=== PATIENT | male | born 1960 | race Hispanic/Latino ===

== ENCOUNTER 2017-09-28 16:57 | Emergency (ER) | payer BC ==
[~2017-09-28] VITALS: Ht 182.9 cm; Wt 105.7 kg
[~2017-09-28 16:57] MED LIST: ALOE VERA PO; CACTUS PO; METAXALONE800 MG PO; NAPROXEN500 MG PO; NASONEX17 GM; OSTEO BI-FLEX1 EAC2 PO; VITAMIN D31000 UNI1 PO; ZYRTEC10 M3 PO; [UNRECOGNIZED DRUG - OTHER] PO
[2017-09-28 19:01] VITALS: BP 107/69
== END 2017-09-28 18:57 | disposition home or self-care (01) ==
LOC: ER 16:57 → FSED 18:57
DX: M54.6 Pain in thoracic spine (principal); S23.3XXA Sprain of ligaments of thoracic spine, initial encounter; M62.830 Muscle spasm of back
CPT/HCPCS: 84484; 93005; 99283

== ENCOUNTER 2017-12-28 22:10 | Emergency (ER) | payer BC ==
[~2017-12-28] VITALS: Ht 182.9 cm; Wt 105.7 kg
[2017-12-28] MEDS ORDERED: CLINDAMYCIN PHOS 600 MG/ 4 ML VIAL IM ONE (22:45)
== END 2017-12-28 22:58 | disposition home or self-care (01) ==
LOC: FSED 22:10
DX: L03.113 Cellulitis of right upper limb (principal); E78.5 Hyperlipidemia, unspecified
CPT/HCPCS: 99283

== ENCOUNTER 2018-02-20 17:22 | Emergency (ER) | payer BC ==
[~2018-02-20] VITALS: Ht 182.9 cm; Wt 105.7 kg
[2018-02-20 18:08] VITALS: BP 135/74
== END 2018-02-20 18:03 | disposition home or self-care (01) ==
LOC: FSED 17:22
DX: R05 Cough (principal); J06.9 Acute upper respiratory infection, unspecified
CPT/HCPCS: 99283

== ENCOUNTER 2019-02-08 19:21 | Emergency (ER) | payer BC ==
[~2019-02-08] VITALS: Ht 182.9 cm; Wt 104.3 kg
--- OUTSIDE RECORDS SUMMARY | 2019-02-08 19:24 | XMS REPORT | Continuity of Care Document ---
Author Author [employer] Address Unknown Phone Unavailable Care Team Providers Care Stringed Instrument Assembler Name Role Phone [facility] Information Exchange Unavailable Unavailable Problems No Data Provided for This Section Medications Medication Details Route Status Patient Instructions Ordering Provider Order Date Source Mometasone Furoate (Nasonex) 17 Gm [place], Nasal Bedtime Active 04/03/2017 [facility] Sabila Con Nopal , 350 Mg Oral Daily Active 04/03/2017 [facility] Aloe Vera/[place] Daily Active [facility] Cetirizine Hcl (Zyrtec) 10 Mg Capsule Daily Active THERAPEUTICALLY SUBSTITUTED WITH LORATIDINE 10MG [facility] Cholecalciferol (Vitamin D3) (Vitamin D3) 1,000 Unit Tablet Daily Active [facility] Glucosamine/D3/Boswellia Nano (Osteo Bi-Flex Caplet) 1 Each Tablet Daily Active [facility] Metaxalone 800 Mg Tablet Daily Active [facility] Naproxen 500 Mg Tablet Twice A Day Active [facility] Allergies, Adverse Reactions, Alerts No Known Medication Allergies Immunizations No Data Provided for This Section Results No Data Provided for This Section Pathology Reports No Data Provided for This Section Diagnostic Reports No Data Provided for This Section Consultation Notes No Data Provided for This Section Discharge Summaries No Data Provided for This Section History and Physicals No Data Provided for This Section Vital Signs Vital Sign Value Date Comments Source Weight 221.9 08/20/2013 [id number] Height 72.5 08/20/2013 [id number] Temperature Oral (F) 98.4 F 08/20/2013 2..[id number] Heart Rate 66 08/20/2013 [id number] Diastolic (mm Hg) 73 08/20/2013 [id number] Systolic (mm Hg) 116 08/20/2013 [id number] Encounters Location Location Details Encounter Type Encounter Number Reason For Visit Attending Provider ADM Date DC Date Status Source [facility] Test results [id number] 08/26/2013 08/26/2013 [id number] [facility] Test results [id number] 08/26/2013 08/26/2013 [id number] [facility] Unknown [id number] 08/27/2013 08/27/2013 [id number] [facility] Unknown [id number] 08/27/2013 08/27/2013 [id number] Departed Emergency Room [id number] KING EVANS MD 09/28/2017 09/28/2017 [facility] Departed Emergency Room [id number] TIFFANY URIARTE MD 12/28/2017 12/28/2017 [facility] Departed Emergency Room [id number] CRICKET MONTEJO MD 02/20/2018 02/20/2018 [facility] Procedures No Data Provided for This Section Assessment and Plan No Data Provided for This Section Plan of Care Plan of Care Date Source Discharge Date 02/20/18 6:03pm Disposition HOME, SELF-CARE Condition at Discharge Stable Instructions/Education Provided Common Cold - Adult Prescriptions See Medication Section Referrals Neeraj Anaya MD Additional Instructions/Education Return to the closest emergency room if symptoms worsen. Take medication as prescribed. Fill your prescription immediately after leaving the ER. Tylenol/Ibuprofen as needed for headache, pain and fever. You may take a maximum of 600mg Ibuprofen every 6 hours as needed for pain and fever. You may also take a maximum of 500mg Tylenol every 4 hours as needed for pain and fever. It is okay to alternate the Ibuprofen and Tylenol. You may also use over the counter saline rinses and a humidifier to help with nasal congestion. Follow up with your doctor tomorrow. 02/20/2018 [facility] Social History Social History Date Source Smoking Status Start Date Stop Date Never Smoker 02/20/2018 [facility] Social History ElementQualifiersDate Reported Tobacco Use: . Are you a: never smoker August 20, 2013 Do you drink alcohol? . Status: Yes, Type: Beer, How Often? Socially, Quantity: 1 August 20, 2013 08/20/2013 [id number] Family History No Data Provided for This Section Advance Directives Order Name Results Value Date Source Advance Directives Advance Directives Directive Response Recorded Date/Time Does the patient have an advance directive? Yes 02/07/16 3:39pm If yes, is advance directive on file with [facility]? No 02/07/16 3:36pm If not on file with [facility] will patient provide a copy? Yes 04/03/17 12:39pm Do you have a Directive to Physician? 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 Yes 02/20/18 6:10pm Do you have an out of hospital Do Not Resuscitate Order? No 02/20/18 6:10pm Do you have any special needs we should be aware of? No 02/20/18 6:10pm Do you have a support person here with you today? Yes 02/20/18 6:10pm Did patient receive Notice of Privacy Practices? Yes 02/20/18 6:10pm Did patient receive patient rights and responsibilities? Yes 02/20/18 6:10pm 02/20/2018 [facility] Functional Status No Data Provided for This Section
[2019-02-08] MEDS ORDERED: KETOROLAC TROMETHAMINE 60 MG/2 ML VIAL IM ONE (20:00)
[2019-02-08] MEDS ORDERED: KETOROLAC TROMETHAMINE 30 MG/ML VIAL ONE (20:04)
[2019-02-08] MEDS ORDERED: NAPROSYN500 MG PO (20:07)
[2019-02-08] MEDS ORDERED: COLACE100 MG PO (20:07)
[2019-02-08] MEDS ORDERED: ULTRAM 50MG50 MG PO (20:07)
--- NOTE | 2019-02-08 21:41 | Diagnostic Imaging Report ---
Right hip radiograph 2 views and single pelvis radiograph HISTORY: Pain. COMPARISON: None available. FINDINGS: Bones: No acute displaced fracture. Osseous alignment is within normal limits. Joints: The joint spaces are well-maintained. Soft tissues: Enthesopathic changes about the pelvis. IMPRESSION: No acute radiographic abnormality. Enthesopathic changes about the pelvis. Signed by: Brandon Lockhart DO on 02/08/2019 9:37 PM
--- NOTE | 2019-02-08 21:44 | Diagnostic Imaging Report ---
Lumbar Spine Radiographs: 3 views HISTORY: Pain. COMPARISON: Abdominal CT 02/08/2019 DISCUSSION: Some of the osseous structures are partially obscured by stool and bowel gas. There are 6 nonrib bearing lumbar vertebral bodies. The alignment of the spine is within normal limits. No displaced fracture or compression deformity is identified. Disc Spaces: The disc spaces are well maintained. Multilevel disc osteophytes. Facets: Sclerotic changes in the mid to lower lumbar spine facets. IMPRESSION: No acute radiographic abnormality. Mild degenerative changes in the lumbar spine. Signed by: Brandon Lockhart DO on 02/08/2019 9:40 PM
--- NOTE | 2019-02-08 22:02 | Diagnostic Imaging Report ---
EXAM: CT Abdomen and Pelvis WITHOUT contrast INDICATION: Lower back pain, right hip pain COMPARISON: None. TECHNIQUE: Abdomen and pelvis were scanned utilizing a multidetector helical scanner from the lung base to the pubic symphysis without administration of IV contrast. Absence of intravenous contrast decreases sensitivity for detection of focal lesions and vascular pathology. Coronal and sagittal reformations were obtained. Routine protocol was performed. IV CONTRAST: None ORAL CONTRAST: None COMPLICATIONS: None RADIATION DOSE: Total DLP: 828 mGy*cm Estimated effective dose: (DLP x 0.015 x size factor) mSv CTDIvol has been reviewed. It is below the limits set by the Radiation Protocol Committee (RPC). Dose modulation, iterative reconstruction, and/or weight based adjustment of the mA/kV was utilized to reduce the radiation dose to as low as reasonably achievable. FINDINGS: LINES and TUBES: None. LOWER THORAX: Mild right atrial enlargement. HEPATOBILIARY: No focal hepatic lesions. No biliary ductal dilation. GALLBLADDER: No radio-opaque stones or sludge. No wall thickening. SPLEEN: No splenomegaly. PANCREAS: No focal masses or ductal dilatation. ADRENALS: No adrenal nodules KIDNEYS/URETERS: No hydronephrosis. A 1.6 cm hypodensity in the renal right inferior measures fluid density and is likely a cyst or calyx. No solid masses. Punctate calculus in a left renal inferior pole minor calyx. GI TRACT: No abnormal distention, wall thickening, or evidence of bowel obstruction. Appendix is normal. PELVIC ORGANS/BLADDER: Prostatic calcifications. Bladder is underdistended. LYMPH NODES: No lymphadenopathy. VESSELS: Unremarkable. PERITONEUM / RETROPERITONEUM: No free air or fluid. BONES: No acute displaced fractures. Degenerative changes in the spine and pelvis. There are 6 nonrib bearing lumbar vertebral bodies, L6 vertebral body has bilateral pseudoarthrosis with the sacral aorta. SOFT TISSUES: A fat containing left inguinal hernia. Evidence of a left gluteal subcutaneous injection. IMPRESSION: 1. No acute abnormalities in the abdomen or pelvis. 2. Mild right atrial enlargement. 3. Degenerative changes in the spine and pelvis, with lumbosacral pseudoarthrosis.. Signed by: Brandon Lockhart DO on 02/08/2019 9:59 PM
[2019-02-08 22:15] VITALS: BP 135/74
== END 2019-02-08 22:30 | disposition home or self-care (01) ==
LOC: FSED 19:21
DX: M54.5 Low back pain (principal); M25.551 Pain in right hip; R50.9 Fever, unspecified
CPT/HCPCS: 72100; 73502; 74176; 81003; 96372; 99284; J1885

== ENCOUNTER 2019-03-06 15:39 | Observation (INO) | payer BC ==
[~2019-03-06] VITALS: Ht 182.9 cm; Wt 101.2 kg
[~2019-03-06 15:39] MED LIST changes: +COLACE100 MG PO; +NAPROSYN500 MG PO; +ULTRAM 50MG50 MG PO
--- OUTSIDE RECORDS SUMMARY | 2019-03-06 15:43 | XMS REPORT ---
Author Author [facility] Address Unknown Phone Unavailable Care Team Providers Care Physician Practice Administrator Name Role Phone Juan SZYMANSKI Unavailable Unavailable Problems This patient has no known problems. Allergies, Adverse Reactions, Alerts This patient has no known allergies or adverse reactions. Medications This patient has no known medications. Results Test Description Test Time Test Comments Text Results Atomic Results Result Comments CT ABD/PEL WO CONTRAST-HOPD 2019-02-08 21:49:00 [place] [address] Patient Name: REI WAN MR #: [id number] : 1960 Age/Sex: 59/M Req #: [id number] Adm Physician: Ordered by: JAN SZYMANSKI MD Report #: [id number] Location: [facility] Room/Bed: Procedure: [id number] HOPD/CT ABD/PEL WO CONTRAST-HOPD Exam Date: 02/08/19 Exam Time: 2038 REPORT STATUS: Signed EXAM: CT Abdomen and Pelvis WITHOUT contrast INDICATION: Lower back pain, right hip pain COMPARISON: None. TECHNIQUE: Abdomen and pelvis were scanned utilizing a multidetector helical scanner from the lung base to the pubic symphysis without administration of IV contrast. Absence of intravenous contrast decreases sensitivity for detection of focal lesions and vascular pathology. Coronal and sagittal reformations were obtained. Routine protocol was performed. IV CONTRAST: None ORAL CONTRAST: None COMPLICATIONS: None RADIATION DOSE: Total DLP: 828 mGy*cm Estimated effective dose: (DLP x 0.015 x size factor) mSv CTDIvol has been reviewed. It is below the limits set by the Radiation Protocol Committee (RPC). Dose modulation, iterative reconstruction, and/or weight based adjustment of the mA/kV was utilized to reduce the radiation dose to as low as reasonably achievable. FINDINGS: LINES and TUBES: None. LOWER THORAX: Mild right atrial enlargement. HEPATOBILIARY: No focal hepatic lesions. No biliary ductal dilation. GALLBLADDER: No radio-opaque stones or sludge. No wall thickening. SPLEEN: No splenomegaly. PANCREAS: No focal masses or ductal dilatation. ADRENALS: No adrenal nodules KIDNEYS/URETERS: No hydronephrosis. A 1.6 cm hypodensity in the renal right inferior measures fluid density and is likely a cyst or calyx. No solid masses. Punctate calculus in a left renal inferior pole minor calyx. GI TRACT: No abnormal distention, wall thickening, or evidence of bowel obstruction. Appendix is normal. PELVIC ORGANS/BLADDER: Prostatic calcifications. Bladder is underdistended. LYMPH NODES: No lymphadenopathy. VESSELS: Unremarkable. PERITONEUM / RETROPERITONEUM: No free air or fluid. BONES: No acute displaced fractures. Degenerative changes in the spine and pelvis. There are 6 nonrib bearing lumbar vertebral bodies, L6 vertebral body has bilateral pseudoarthrosis with the sacral aorta. SOFT TISSUES: A fat containing left inguinal hernia. Evidence of a left gluteal subcutaneous injection. IMPRESSION: 1. No acute abnormalities in the abdomen or pelvis. 2. Mild right atrial enlargement. 3. Degenerative changes in the spine and pelvis, with lumbosacral pseudoarthrosis.. Signed by: Brandon Lockhart DO on 02/08/2019 9:59 PM Dictated By: BRANDON LOCKHART DO 56 Transcribed By: TAISHA on 02/08/192158 COPY TO: JAN SZYMANSKI MD SPINE 2-3 [facility] 2019-02-08 21:37:00 [place] [address] Patient Name: REI WAN MR #: [id number] : 1960 Age/Sex: 59/M Req #: [id number] Adm Physician: Ordered by: JAN SZYMANSKI MD Report #: [id number] Location: [facility] Room/Bed: Procedure: [id number] HOPD/L SPINE 2-3 VEWS - HOPD Exam Date: 02/08/19 Exam Time: 2009 REPORT STATUS: Signed Lumbar Spine Radiographs: 3 views HISTORY: Pain. COMPARISON: Abdominal CT 02/08/2019 DISCUSSION: Some of the osseous structures are partially obscured by stool and bowel gas. There are 6 nonrib bearing lumbar vertebral bodies. The alignment of the spine is within normal limits. No displaced fracture or compression deformity is identified. Disc Spaces: The disc spaces are well maintained. Multilevel disc osteophytes. Facets: Sclerotic changes in the mid to lower lumbar spine facets. IMPRESSION: No acute radiographic abnormality. Mild degenerative changes in the lumbar spine. Signed by: Brandon Lockhart DO on 02/08/2019 9:40 PM Dictated By: BRANDON LOCKHART DO 37 Transcribed By: TAISHA on 02/08/192139 COPY TO: JAN SZYMANSKI MD HIP 2 VW WITH PELVIS RT - HOPD 2019-02-08 21:35:00 [place] [address] Patient Name: REI WAN MR #: [id number] : 1960 Age/Sex: 59/M Req #: [id number] Adm Physician: Ordered by: JAN SZYMANSKI MD Report #: [id number] Location: [facility] Room/Bed: Procedure: [id number] HOPD/HIP 2 VW WITH PELVIS RT - HOPD Exam Date: 02/08/19 Exam Time: 2009 REPORT STATUS: Signed Right hip radiograph 2 views and single pelvis radiograph HISTORY: Pain. COMPARISON: None available. FINDINGS: Bones: No acute displaced fracture. Osseous alignment is within normal limits. Joints: The joint spaces are well-maintained. Soft tissues: Enthesopathic changes about the pelvis. IMPRESSION: No acute radiographic abnormality. Enthesopathic changes about the pelvis. Signed by: Brandon Lockhart DO on 02/08/2019 9:37 PM Dictated By: BRANDON LOCKHART DO 34 Transcribed By: TAISHA on 02/08/192136 COPY TO: JAN SZYMANSKI MD
--- NOTE | 2019-03-06 18:24 | Diagnostic Imaging Report ---
EXAM: CT Chest WITH contrast INDICATION: Upper back pain. Chest pain. COMPARISON: CT scan 02/08/2019 TECHNIQUE: Chest was scanned utilizing a multidetector helical scanner from the lung apex through the level of the adrenal glands after administration of IV contrast. Coronal and sagittal reformations were obtained. IV CONTRAST: 100 mL of Isovue-370 ORAL CONTRAST: None COMPLICATIONS: None RADIATION DOSE: Total DLP: 828 mGy*cm Estimated effective dose: (DLP x 0.015 x size factor) mSv CTDIvol has been reviewed. It is below the limits set by the Radiation Protocol Committee (RPC). Dose modulation, iterative reconstruction, and/or weight based adjustment of the mA/kV was utilized to reduce the radiation dose to as low as reasonably achievable. FINDINGS: LINES/ TUBES: None. LUNGS AND AIRWAYS: Numerous scattered ill-defined groundglass nodular densities in the lungs could be due to multifocal pneumonia in the appropriate clinical context. This is best seen on axial image 45 and axial image 63. Airways are normal. PLEURA: The pleural spaces are clear. HEART AND MEDIASTINUM: The thyroid gland is normal. No mediastinal, hilar or axillary lymphadenopathy. Left atrial enlargement. There is no pericardial effusion. The thoracic aorta and pulmonary arteries are unremarkable. UPPER ABDOMEN: Unremarkable. BONES: The visualized bony thorax is within normal limits. SOFT TISSUES: Unremarkable. IMPRESSION: Numerous scattered ill-defined groundglass nodular densities in the lungs could be due to multifocal pneumonia in the appropriate clinical context. Follow-up CT scan is recommended to document clearing. Signed by: Dr. Italo Camacho M.D. on 03/06/2019 6:20 PM
[2019-03-06] MEDS ORDERED: ASPIRIN 81 MG CHEW TAB PO ONE (19:00)
[2019-03-06] MEDS ORDERED: ASPIRIN 325 MG TAB PO ONE (19:00)
[2019-03-06] MEDS ORDERED: ONDANSETRON HCL INJ 2MG/ML 2ML 2 MG/ML VIAL IV PRN (19:00)
[2019-03-06] MEDS ORDERED: ASPIRIN 325 MG TAB ONE (19:11)
[2019-03-06 21:05] VITALS: BP 133/74
[2019-03-06 22:00] VITALS: BP 133/74
[2019-03-06] MEDS ORDERED: NAPROXEN125 MG/5 M (22:59)
[2019-03-06] MEDS ORDERED: ACETAMINOPHEN 325 MG TAB PO PRN (23:30)
[2019-03-06] MEDS ORDERED: SODIUM CHLORIDE 0.9% 250ML 250 ML ONE (23:54)
[2019-03-07] VITALS (8 sets, daily range): BP systolic 123–135; BP diastolic 66–82
[2019-03-07] MEDS: LEVOFLOXACIN 750MG/D5W 150ML 150 ML IV SCH ×2 (00:21→23:35)
[2019-03-07 00:55] LABS: CREATINE KINASE MB 0.8 ng/mL (0-5.0)
--- NOTE | 2019-03-07 02:58 | History and Physical ---
CHIEF COMPLAINT: Atypical chest pain since 5 days. HISTORY OF PRESENT ILLNESS: This is a 59-year-old male with no significant past medical history, was in his usual state until a couple days ago. He started developing some atypical chest pain and upper back pain. Pain is not relieved. Pain is more today. He is still having some substernal chest pain and upper back pain. Pain not radiating into upper extremity. No sweating. No shortness of breath. No nausea. No vomiting. No cough. No fever. No headache. No dizziness. No focal weakness. No seizures. No hematochezia. No melena. ALLERGIES: NO KNOWN DRUG ALLERGIES. PAST MEDICAL HISTORY: None. PAST SURGICAL HISTORY: History of bilateral knee meniscus repair. HABITS: Denies smoking, but occasional alcohol use. No drug use. FAMILY HISTORY: Positive for hypertension. Mother and father both had hypertension. MEDICATION: None. REVIEW OF SYSTEMS: GENERAL: Denies fatigue and weakness. HEENT: No diplopia or blurred vision. CARDIOPULMONARY: Has some chest pain, but no shortness of breath. No cough. ALIMENTARY: No nausea or vomiting. No diarrhea. GENITOURINARY: No dysuria. No hematuria. MUSCULOSKELETAL: No joint pain. CENTRAL NERVOUS SYSTEM: No focal weakness. PHYSICAL EXAMINATION: GENERAL: This is a 59-year-old male, who is alert and oriented x3, in no gross distress. VITAL SIGNS: Temperature is 98.2, pulse 80, respiration 18, blood pressure 140/80. HEENT: Head is atraumatic and normocephalic. Pupils bilaterally equally reactive to light. Extraocular muscles intact. NECK: Supple. No JVD. No carotid bruit. LUNGS: Clear to auscultation and percussion bilaterally. No added sounds. HEART: S1 and S2. Regular rate and rhythm. No S3, S4, or murmur. ABDOMEN: Soft, nontender. No guarding or rigidity. EXTREMITIES: No edema. Peripheral pluses +1. 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 IMAGING: EKG normal sinus rhythm at 64 per minute, normal. CT of the chest shows numerous scattered ill-defined ground-glass nodular density in the lung, could be multifocal pneumonia in the LABORATORY DATA: White count 8.3, hemoglobin 13.6, hematocrit 40.7, platelet is 230. Sodium 139, potassium 3.5, BUN and creatinine are normal. LFTs normal. ASSESSMENT: 1. Atypical chest pain, rule out angina, rule out coronary artery disease. CBC, white count normal. Cardiac enzyme is negative. 2. Rule out pneumonia. PLAN: Admit the patient to medical floor with telemetry. Cardiac enzymes q.6h x2. Cardiac consult with Dr. Reno. Lab tomorrow. CBC, CMP, lipid panel in the morning. Levaquin 750 IV daily. Pulmonary consult with Dr. Torres/Adam. Discussed the patient's diagnosis, condition, and prognosis. MD DARIO Quiros/EMIR /[id number]
[2019-03-07 05:59] LABS: BASOPHILS % 0.5 % (0.0-1.0); EOSINOPHILS # (AUTO) 0.1 (0.0-0.4); EOSINOPHILS % 1.6 % (0.0-6.0); HEMATOCRIT 41.9 % (38.2-49.6); LYMPHOCYTES # (AUTO) 1.4 (1.0-3.2); LYMPHOCYTES % 24.5 % (18.0-39.1); MEAN CORPUSCULAR HEMOGLOBIN 29.7 pg (28-32); MEAN CORPUSCULAR HGB CONC 33.4 g/dL (31-35); MEAN CORPUSCULAR VOLUME 88.8 fL (81-99); MONOCYTES # (AUTO) 0.7 (0.2-0.8); MONOCYTES % 13.2 % (4.4-11.3); NEUTROPHILS # (AUTO) 3.3 (2.1-6.9); NEUTROPHILS % 59.8 % (38.7-80.0); PLATELET COUNT 236 x10e3/uL (140-360); RED BLOOD COUNT 4.72 x10e6/uL (4.3-5.7); RED CELL DISTRIBUTION WIDTH 13.2 % (11.7-14.4)
[2019-03-07 06:13] LABS: ALANINE AMINOTRANSFERASE 15 IU/L (0-55); ALBUMIN 3.1 g/dL (3.5-5.0); ALBUMIN/GLOBULIN RATIO 0.9 (0.8-2.0); ALKALINE PHOSPHATASE 68 IU/L (40-150); ANION GAP 10.8 mmol/L (8-16); BLOOD UREA NITROGEN 12 mg/dL (7-26); BUN/CREATININE RATIO 13 (6-25); CALCIUM 8.7 mg/dL (8.4-10.2); CARBON DIOXIDE 30 mmol/L (22-29); CHLORIDE 104 mmol/L (98-107); CREATININE, SERUM 0.89 mg/dL (0.72-1.25); EST GLOMERULAR FILTRATION RATE > 60 ML/MIN (60-); GLUCOSE 100 mg/dL (74-118); POTASSIUM 3.8 mmol/L (3.5-5.1); SODIUM 141 mmol/L (136-145)
[2019-03-07 06:36] LABS: CHOL/HDL RATIO 4.2 (3.9-4.7)
[2019-03-07 06:59] LABS: FREE T4 (FREE THYROXINE) 0.76 ng/dL (0.8-1.8); THYROID STIMULATING HORMONE 2.047 uIU/mL (0.350-4.940)
[2019-03-07 07:47] LABS: CREATINE KINASE MB 1.5 ng/mL (0-5.0)
[2019-03-07] MEDS: PANTOPRAZOLE SOD 40 MG TABEC PO SCH (08:10)
[2019-03-07] MEDS: ASPIRIN 325 MG TAB EC PO SCH (08:26)
[2019-03-07] MEDS ORDERED: ASPIRIN 325 MG TAB EC PO SCH (09:00)
--- NOTE | 2019-03-07 11:19 | Consultation ---
DATE OF CONSULTATION: Pulmonary Consultation HISTORY OF PRESENT ILLNESS: Patient of Dr. Stormy Allan. 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 Usually healthy. Nonsmoker. No alcohol use. MEDICATIONS: Takes hwmw-kqf-iesinjr medications, Naprosyn, B12, aloe vera, according to record thyroid supplements. ALLERGIES: HE HAS NO KNOWN ALLERGIES. PAST SURGICAL HISTORY: He has had arthroscopic knee surgery and a boil removed from his back. SOCIAL HISTORY: Rarely drinks. Does not smoke. Born in [place], usually active. FAMILY HISTORY: Positive for hypertension, blood clots, carcinoma of the breast, palpitations, irregular heartbeat. PHYSICAL EXAMINATION: GENERAL: Well-developed white male, stated age. VITAL SIGNS: Temperature 97.9, pulse 60 and regular, respirations 20, and blood pressure 129/60. HEAD: Normocephalic, atraumatic. EYES: Extraocular movements intact. LUNGS: Bilateral rales. HEART: Regular rhythm. ABDOMEN: Nontender. EXTREMITIES: Nonedematous. IMAGING: CT was reviewed, bilateral lower lobe patchy infiltrates. IMPRESSION: Atypical pneumonia. check serology. Continue antibiotics, prophylactic Lovenox. Cardiology opinion is pending. Thank you for this kind referral. MD MK Underwood/EMIR /[id number] CHANO
[2019-03-07 13:35] LABS: CREATINE KINASE MB 0.8 ng/mL (0-5.0)
[2019-03-07] MEDS ORDERED: ENOXAPARIN SOD INJ 40 MG/0.4 ML SYR SC SCH (17:00)
[2019-03-08] VITALS: BP 123/73
--- NOTE | 2019-03-08 00:03 | Consultation ---
DATE OF CONSULTATION: 03/07/2019 Cardiology Consultation REQUESTING PHYSICIAN: Benji Allan MD REASON FOR CONSULTATION: Chest pain. HISTORY OF PRESENT ILLNESS: This is a 59-year-old male with history of hyperlipidemia, who presents with complaints of chest pain and shortness of breath. He reports he has been having right-sided chest pain and shortness of breath for the last 4-5 days. He describes this pain as stinging, 3 to 4/10 in severity with radiation to the side. The pain lasts minutes at a time, but has been recurrent during this time period. He denies any nausea or diaphoresis. Yesterday, he noted pressure in the back as well. Given his symptoms, he presented to the ER for further evaluation. He denied any edema, orthopnea, PND, or palpitations. REVIEW OF SYSTEMS: Negative except as per HPI. PAST MEDICAL HISTORY: Hyperlipidemia. PAST SURGICAL HISTORY: 1. Knee surgery. 2. Likely lipoma resection based on description. ALLERGIES: PLEASE SEE EMR. MEDICATIONS: Please see medication list. SOCIAL HISTORY: Remote history of tobacco use. No illicit drugs. Drinks alcohol occasionally. FAMILY HISTORY: Pertinent for father with heart disease, although details are not known. PHYSICAL EXAMINATION: VITAL SIGNS: Temperature 96.9 degrees, pulse 86, respiratory rate 20, blood pressure 129/68, and oxygen saturation 96% on room air. GENERAL: Well-developed, well-nourished man. HEENT: Normocephalic, atraumatic. Pupils equal. No scleral icterus. NECK: Supple. No thyromegaly or cervical lymphadenopathy. No carotid bruits. LUNGS: Clear to auscultation bilaterally. No wheeze or crackles. CARDIOVASCULAR: Normal rate. Regular rhythm. No murmur. Normal S1 and S2. ABDOMEN: Soft and nontender. EXTREMITIES: No edema. NEUROLOGIC: Nonfocal exam. LABORATORY DATA: WBC 5.54, hemoglobin 14, hematocrit 41.9, and platelets 236. Sodium 141, potassium 3.8, chloride 104, CO2 of 30, BUN 12, creatinine 0.89, and troponin 0.014. CT of the chest, numerous scattered ill-defined ground-glass nodular densities in lungs could be due to multifocal pneumonia in the appropriate clinical context. Followup CT scan is recommended to document clearing. Chest x-ray, normal sinus rhythm, normal ECG. IMPRESSION: 1. Atypical chest pain. 2. Pneumonia. 3. Hyperlipidemia. RECOMMENDATIONS: The patient has ruled out for myocardial infarction with serial cardiac biomarkers. Obtain echocardiogram to evaluate for structural heart disease. Monitor the patient closely on telemetry. Fasting lipid panel was reviewed. Given CT findings, suspect the patient's symptoms are more likely pulmonary etiology. Recommend ischemic evaluation with nuclear stress test as an outpatient. Thank you for this consult. We will continue to follow. Jennie Garcia MD ABS/MODL /[id number]
[2019-03-08 04:00] VITALS: BP 122/71
[2019-03-08] MEDS ORDERED: LEVOTHYROXINE SODIUM 25 MCG TABLET PO SCH (06:00)
[2019-03-08 08:00] VITALS: BP 120/71
[2019-03-08] MEDS: PANTOPRAZOLE SOD 40 MG TABEC PO SCH (09:20)
[2019-03-08] MEDS: ASPIRIN 325 MG TAB EC PO SCH (09:20)
[2019-03-08 09:31] VITALS: BP 122/71
[2019-03-08 12:55] VITALS: BP 126/78
--- NOTE | 2019-03-08 12:56 | Progress Note ---
DATE: Cardiology Progress Note SUBJECTIVE: The patient reports right-sided chest pain that has been ongoing on and off. Denies any palpitations, fever, or chills. Does endorse some shortness of breath. OBJECTIVE: VITAL SIGNS: Temperature 97.1, pulse 66, respiratory rate 18, blood pressure 122/71, and oxygen saturation 94% on room air. GENERAL: Alert and oriented x3. Resting comfortably in bed. Does not appear to be in any acute distress. NECK: Supple. No JVD noted. LUNGS: Clear to auscultation throughout. No wheezing. No rhonchi or crackles. CARDIOVASCULAR: Normal rate and rhythm. No murmurs. No gallops. Normal S1 and S2. ABDOMEN: Soft and nontender. EXTREMITIES: Lower extremity, no edema. CARDIOVASCULAR MEDICATIONS: Aspirin 325 p.o. daily and Lovenox 40 mg subcutaneous daily. LABORATORY DATA: No new labs today. TELEMETRY: Normal sinus rhythm. IMPRESSION: 1. Atypical chest pain. 2. Pneumonia. 3. Hyperlipidemia. RECOMMENDATION: Continue antimicrobial therapy per primary team. Acute coronary syndrome has been ruled out with serial cardiac markers. We have ordered an echocardiogram. This is awaiting to be completed. Continue to monitor this patient very closely. However, the patient will need ischemic workup. This may be done as outpatient. He will follow up with Dr. Garcia upon discharge. Dictated by Radha Oquendo NP MD ARIC Renae/EMIR /[id number]
[2019-03-08] MEDS ORDERED: LEVAQUIN500 MG PO (14:36)
[2019-03-08] MEDS ORDERED: PANTOPRAZOLE SO40 MG PO (14:37)
[2019-03-08] MEDS ORDERED: SYNTHROID50 MCG PO (14:37)
== END 2019-03-08 15:39 | disposition home or self-care (01) ==
LOC: FSED 15:39 → ERHOLD 18:53 → UNDOADMOB 19:16 → MED/SURG 21:06
PROVIDERS: ADMIT Internal Medicine; ATTEND Internal Medicine
DX: J18.9 Pneumonia, unspecified organism (principal); R07.89 Other chest pain; E78.5 Hyperlipidemia, unspecified; E03.9 Hypothyroidism, unspecified; K21.9 Gastro-esophageal reflux disease without esophagitis
CPT/HCPCS: 36415; 71260; 80053 ×2; 80061; 82550; 82553 ×2; 83036; 84439; 84443; 84484 ×2; 85025 ×2; 86738 ×2; 87040; 87070; 87205; 93005; 93306; 99284; G0378 ×3; J1650; J2405; J7050; S0164 ×2; 87449

== ENCOUNTER → 2019-03-31 | Outpatient (CLI) | payer BC ==
[~2019-03-31] MED LIST changes: +LEVAQUIN500 MG PO; +NAPROXEN125 MG/5 M; +PANTOPRAZOLE SO40 MG PO; +SYNTHROID50 MCG PO
--- NOTE | 2019-04-01 08:59 | Diagnostic Imaging Report ---
EXAM: CT Chest WITHOUT intravenous contrast 03/31/2019 4:22 PM INDICATION: Cough COMPARISON: Chest CT of 03/06/2019 TECHNIQUE: Chest was scanned utilizing a multidetector helical scanner from the lung apex through the level of the adrenal glands without administration of IV contrast. Coronal and sagittal reformations were obtained. Routine protocol was performed. IV CONTRAST: None RADIATION DOSE: Total DLP: 555.9 mGy*cm. Dose modulation, iterative reconstruction, and/or weight based adjustment of the mA/kV was utilized to reduce the radiation dose to as low as reasonably achievable. COMPLICATIONS: None FINDINGS: LINES/ TUBES: None. LUNGS AND AIRWAYS: The central airways are patent. No focal consolidation or pulmonary edema. Minimal bibasilar dependent subsegmental atelectasis. There has been interval resolution of the consolidative opacities at the posterior right upper lobe and dependent left lower lobe. No suspicious pulmonary nodules. PLEURA: No pleural effusion or pneumothorax. HEART AND MEDIASTINUM: The thyroid gland is normal. No supraclavicular, mediastinal, or hilar lymphadenopathy. No axillary, subpectoral, or internal mammary lymphadenopathy. The heart is not enlarged. No pericardial effusion. The main pulmonary artery is not enlarged. UPPER ABDOMEN: The visualized liver, gallbladder, spleen, pancreas, adrenals, and upper most kidneys. BONES: No acute osseous injury. No suspicious lytic or blastic lesions. SOFT TISSUES: Unremarkable. IMPRESSION: Interval resolution of consolidative opacities at the posterior right upper lobe and dependent left lower lobe. No focal pneumonia or pulmonary edema. No suspicious pulmonary nodules. Signed by: Augie Rose MD on 04/01/2019 8:55 AM
== END ==
LOC: CT 16:04
PROVIDERS: ATTEND Internal Medicine
DX: R05 Cough (principal)
CPT/HCPCS: 71250

== ENCOUNTER 2019-11-15 19:53 | Emergency (ER) | payer BC ==
[~2019-11-15] VITALS: Ht 182.9 cm; Wt 102.1 kg
[2019-11-15] MEDS ORDERED: TESSALON PERLE100 MG PO (20:17)
[2019-11-15] MEDS ORDERED: AZITHROMYCIN250 MG PO (20:17)
[2019-11-15] MEDS ORDERED: VENTOLIN HFA18 GM PO (20:17)
--- NOTE | 2019-11-15 20:21 | Emergency Department Note ---
History of Present Illnes History of Present Illness Chief Complaint: COVID PUI History of Present Illness This is a 59 year old male . Historian: Patient Arrival Mode: Car Insurance Service Representative Required: No Onset (how long ago): day(s) (2) Radiation: Reports non-radiation Severity: mild Onset quality: gradual Duration (how long): day(s) (2) Timing of current episode: constant Progression: unchanged Chronicity: new Context: Denies recent illness, Denies recent surgery, Denies recent immobilization, Denies recent travel, Denies trauma/injury, Denies new medic ations, Denies hx of DVT/PE, Denies non-compliance w/ medications, Denies other Relieving factors: none Exacerbating factors: none Associated symptoms: Reports cough, Reports fever/chills; Denies denies other symptoms, Denies loss of appetite, Denies shortness of breath, Denies weakness Treatments prior to arrival: none Past Medical/Family History Physician Review I have reviewed the patient's past medical and family history. Any updates have been documented here. Past Medical History Recent Fever: Yes Clinical Suspicion of Infectio: Yes New/Unexplained Change in Ment: No Past Medical History: Hyperlipedemia Past Surgical History: Back Surgery Other Surgery: bilateral knee surgery left Feb 2017 right knee for torn meniscus Social History Smoking Cessation: Never Smoker Alcohol Use: Occasional Any Illegal Drug Use: No TB Exposure/Symptoms: No Physically hurt or threatened: No Other Last Tetanus: UTD Any Pre-Existing Lines (PICC,: No Is patient up to date on immun: No Last Flu: DOES NOT TAKE Last Pneumovax: UNK Review of Systems Review of Systems Constitutional: Reports fever EENTM: Reports no symptoms Respiratory: Reports cough; Denies chest congestion, Denies excessive phlegm production Review of other systems: All other systems negative Physical Exam Related Data Allergies: Coded Allergies: No Known Allergies (Unverified , 09/28/17) Vital signs reviewed: Yes Physical Exam CONSTITUTIONAL Constitutional: Present well-developed HENT HENT: Present normocephalic EYES Eyes: Reports conjunctivae normal NECK Neck: Present supple PULMONARY Pulmonary: Present effort normal, Present breath sounds normal; Absent respiratory distress CARDIOVASCULAR Cardiovascular: Present regular rhythm GASTROINTESTINAL Abdominal: Present soft GENITOURINARY SKIN Skin: Present warm MUSCULOSKELETAL Musculoskeletal: Absent edema NEUROLOGICAL Neurological: Present alert, Present oriented x 3 PSYCHOLOGICAL Psychological: Present mood/affect normal Results Imaging Imaging results reviewed: Yes Impressions EXAMINATION: CXR 1 VEW - HOPD INDICATION: Fever, Cough COMPARISON: Chest CT 03/06/2019 FINDINGS: TUBES and LINES: None. LUNGS: Normal lung volumes. Lungs are clear. No consolidations. PLEURA: No pleural effusion or pneumothorax. HEART AND MEDIASTINUM: The cardiomediastinal silhouette is unremarkable. BONES AND SOFT TISSUES: No acute osseous lesion. Soft tissues are unremarkable. UPPER ABDOMEN: No free air under the diaphragm. IMPRESSION: No acute thoracic radiographic abnormality. Signed by: Brandon Lockhart DO on 11/15/2019 10:05 PM Assessment & Plan Medical Decision Making MDM covid, viral syndrome, bronchitis, PNA Assessment & Plan Final Impression: (1) Bronchitis (2) Fever Depart Disposition: HOME, SELF-long term Meds Active Scripts Albuterol Sulfate (VENTOLIN HFA) 18 Gm Hfa.aer.ad, 2 PUMP PO QID PRN for cough for 7 Days, #1 Prov:JAN SZYMANSKI MD 11/15/19 Azithromycin (Z-RAYMOND) 250 Mg Tablet, 500 MG PO 5 DAY PACK DIRECT, #1 Prov:JAN SZYMANSKI MD 11/15/19 Benzonatate (TESSALON PERLE) 100 Mg Capsule, 100 MG PO TID PRN for COUGH for 5 Days, #15 Prov:JAN SZYMANSKI MD 11/15/19 Docusate Sodium (COLACE) 100 Mg Cap, 100 MG PO BID PRN for CONSTIPATION for 7 Da ys, #14 CAP Prov:JAN SZYMANSKI MD 02/08/19 Reported Medications Pantoprazole Sodium* (PROTONIX) 40 Mg Tablet.dr, 40 MG PO QAM, TAB 03/08/19 Levothyroxine Sodium (SYNTHROID) 50 Mcg Tab, 25 MCG PO 0630, #30 TAB 03/08/19 Levofloxacin (LEVAQUIN) 500 Mg Tablet, 500 MG PO DAILY for 10 Days, TAB 03/08/19 Naproxen (NAPROXEN) 125 Mg/5 Ml Oral.susp, for pain 03/06/19 [Aloe Vera/[place]] No Conflict Check, PO DAILY 04/03/17 Cetirizine Hcl (ZYRTEC) 10 Mg Capsule, 10 MG PO DAILY THERAPEUTICALLY SUBSTITUTED WITH LORATIDINE 10MG 04/03/17 Glucosamine/D3/Boswellia Nano (OSTEO BI-FLEX CAPLET) 1 Each Tablet, PO DAILY 02/15/16 Cholecalciferol (Vitamin D3) (VITAMIN D3) 1,000 Unit Tablet, 1000 UNITS PO DAILY 02/15/16 JAN SZYMANSKI MD Nov 15, 2019 20:21
[2019-11-15] MEDS ORDERED: ACETAMINOPHEN 325 MG TAB PO ONE (20:45)
[2019-11-15] MEDS ORDERED: ACETAMINOPHEN 325 MG TAB ONE (20:49)
--- NOTE | 2019-11-15 22:09 | Diagnostic Imaging Report ---
EXAMINATION: CXR 1 [facility] INDICATION: Fever, Cough COMPARISON: Chest CT 03/06/2019 FINDINGS: TUBES and LINES: None. LUNGS: Normal lung volumes. Lungs are clear. No consolidations. PLEURA: No pleural effusion or pneumothorax. HEART AND MEDIASTINUM: The cardiomediastinal silhouette is unremarkable. BONES AND SOFT TISSUES: No acute osseous lesion. Soft tissues are unremarkable. UPPER ABDOMEN: No free air under the diaphragm. IMPRESSION: No acute thoracic radiographic abnormality. Signed by: Brandon Lockhart DO on 11/15/2019 10:05 PM
[2019-11-15 22:32] VITALS: BP 121/69
== END 2019-11-15 22:32 | disposition home or self-care (01) ==
LOC: FSED 19:53
DX: R50.9 Fever, unspecified (principal); R05 Cough; J40 Bronchitis, not specified as acute or chronic; U07.1 COVID-19; E78.5 Hyperlipidemia, unspecified
CPT/HCPCS: 71045; 71046; 87635; 99283

== ENCOUNTER → 2020-06-09 | Outpatient (CLI) | payer BC ==
[~2020-06-09] MED LIST changes: +AZITHROMYCIN250 MG PO; +TESSALON PERLE100 MG PO; +VENTOLIN HFA18 GM PO
== END ==
LOC: RAD 10:56
PROVIDERS: ATTEND Internal Medicine
DX: R06.02 Shortness of breath (principal)
CPT/HCPCS: 71046

== ENCOUNTER 2020-07-09 16:46 | Emergency (ER) | payer BC ==
[~2020-07-09] VITALS: Ht 182.9 cm; Wt 99.8 kg
[2020-07-09] MEDS: SILVER NITRATE SWABS TOP ONE (17:20)
[2020-07-09] MEDS ORDERED: SILVER NITRATE SWABS ONE (17:27)
[2020-07-09] MEDS ORDERED: CEPHALEXIN500 MG PO (17:58)
== END 2020-07-09 18:09 | disposition home or self-care (01) ==
LOC: FSED 16:54
DX: R04.0 Epistaxis (principal); J30.9 Allergic rhinitis, unspecified; E78.5 Hyperlipidemia, unspecified
CPT/HCPCS: 99282

== ENCOUNTER 2020-10-09 14:20 | Emergency (ER) | payer BC ==
[~2020-10-09] VITALS: Ht 182.9 cm; Wt 99.9 kg
[~2020-10-09 14:20] MED LIST changes: +CEPHALEXIN500 MG PO
[2020-10-09] MEDS ORDERED: ODOR FREE GARL100 MG (14:45)
[2020-10-09] MEDS ORDERED: ATORVASTATIN CA20 MG PO (14:45)
[2020-10-09] MEDS ORDERED: REFRESH PLUS1 EACH (14:45)
[2020-10-09] MEDS ORDERED: JUBLIA4 ML (14:45)
[2020-10-09] MEDS ORDERED: HYDROCODONE/APAP 5MG-325MG TAB PO ONE (16:00)
[2020-10-09] MEDS ORDERED: CYCLOBENZAPRINE HCL 10 MG TAB PO NR (16:00)
[2020-10-09] MEDS ORDERED: CYCLOBENZAPRINE10 MG PO (16:01)
[2020-10-09] MEDS ORDERED: NAPROSYN500 MG PO (16:02)
[2020-10-09] MEDS ORDERED: TYLENOL # 31 EA PO (16:04)
[2020-10-09] MEDS ORDERED: KETOROLAC TROMETHAMINE 60 MG/2 ML VIAL IM NR (16:30)
[2020-10-09] MEDS ORDERED: HYDROCODONE/APAP 5MG-325MG TAB ONE (16:32)
[2020-10-09] MEDS ORDERED: CYCLOBENZAPRINE HCL 10 MG TAB ONE (16:32)
[2020-10-09] MEDS ORDERED: KETOROLAC TROMETHAMINE 30 MG/ML VIAL ONE (16:32)
== END 2020-10-09 16:40 | disposition home or self-care (01) ==
LOC: FSED 14:30
DX: M43.6 Torticollis (principal); S16.1XXA Strain of muscle, fascia and tendon at neck level, initial encounter; M62.830 Muscle spasm of back; Y93.84 Activity, sleeping; I10 Essential (primary) hypertension; E78.5 Hyperlipidemia, unspecified
CPT/HCPCS: 96372; 99283; J1885

== ENCOUNTER → 2022-03-27 | Outpatient (RCR) | payer BC ==
[~2022-03-27] MED LIST changes: +ATORVASTATIN CA20 MG PO; +CYCLOBENZAPRINE10 MG PO; +JUBLIA4 ML; +ODOR FREE GARL100 MG; +REFRESH PLUS1 EACH; +TYLENOL # 31 EA PO
== END ==
LOC: PT 15:33
PROVIDERS: ATTEND Specialist
DX: M17.0 Bilateral primary osteoarthritis of knee (principal)

== ENCOUNTER 2022-04-03 16:52 | Outpatient (RCR) | payer BC | END 2022-04-26 | LOC: PT 16:52 | PROVIDERS: ATTEND Specialist | DX: M17.0 Bilateral primary osteoarthritis of knee (principal) ==